=== PATIENT | male | born 1950 | race Caucasian/White ===

== ENCOUNTER 2017-06-18 07:02 | Emergency (ER) | payer MEDICARE, OTHER ==
[~2017-06-18 07:02] MED LIST: ASPI81TA82 PO; CHERRY FRUIT EXTRACT PO; CHOL50006 PO; FISH500C PO; HYDR12.56 PO; LOSA50TA PO; MAGN500T4 PO; MULT-65 PO; SAW160TA PO; VITA500C PO; ZOCO40TA PO; [UNRECOGNIZED DRUG - OTHER] PO
[2017-06-18] MEDS ORDERED: GADODIAMIDE PF 287 MG/ML 20 ML VIAL (for RAD MRI) IVCONTRAST ONE (07:03)
[2017-06-18 07:09] VITALS: BP 180/85; PULSE 101; RESP 16; TEMP 98.2; O2SAT 98
[2017-06-18] MEDS ORDERED: ZOCO10TA PO (07:26)
[2017-06-18] MEDS ORDERED: ASPI-516 CHEW (07:26)
[2017-06-18] MEDS ORDERED: MAGN250T11 PO (07:26)
[2017-06-18] MEDS ORDERED: HYDR-3583 PO (07:26)
[2017-06-18] MEDS ORDERED: [UNRECOGNIZED DRUG - CODE] PO (07:26)
[2017-06-18] MEDS ORDERED: LOSA100T PO (07:26)
[2017-06-18] MEDS ORDERED: SODIUM CHLORIDE 0.9% FLUSH 10 ML FLUSH IV FLUSH PRN (07:30)
--- NOTE | 2017-06-18 07:31 | PD ---
HPI Chief Complaint: Musculoskeletal Complaint Time Seen by Provider: 07:15 Travel History International Travel<30 days: No Contact w/Intl Traveler<30days: No Traveled to known affect area: No History of Present Illness HPI Patient is a 66-year-old male presents emergency department for evaluation of right lower extremity weakness swelling and pain for the past 3-4 days. 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 He has had surgery on his back before by Dr. Chicas, he was told that if his lesions got much bigger he could have life altering weakness of his lower extremities and concern with this he presented to the emergency department today. The patient states he had a workup at an outside hospital a few weeks ago just as a routine checkup and did have a CAT scan of his back. Patient also endorses some intermittent numbness and tingling in his groin area worse on the right, no urinary retention no stool abnormalities. He is ambulating but quite difficult to do so. Symptoms are moderate, gradually worsening, associated signs symptoms as above, context as above. PFSH Past Medical History Arthritis: Yes Cancer: Yes (lung and spinal) Cardiovascular Problems: Yes High Cholesterol: Yes Chemotherapy: Yes (currnent) Diabetes: No Endocrine: No Gastrointestinal Disorders: No Genitourinary: Yes Hepatitis: No Hiatal Hernia: No Hypertension: Yes Immune Disorder: No Kidney Stones: Yes Medical other: No Musculoskeletal: Yes (mitral prolapse) Neurologic: No Psychiatric: No Reproductive: No Respiratory: Yes (lung cancer) Immunizations Current: No Radiation Therapy: Yes (current) Thyroid Disease: No Past Surgical History Abdominal Surgery: Yes (gallbladder) AICD: No Cardiac Surgery: No Ear Surgery: No Endocrine Surgery: No Eye Surgery: No Genitourinary Surgery: No Gynecologic Surgery: No Joint Replacement: Yes (left knee) Neurologic Surgery: No Oral Surgery: No Pacemaker: No Thoracic Surgery: No Other Surgery: Yes (KNEE REPLACEMENT, BROKEN WRISTS, GAL BLADDER, BUNIONECTOMY , DIVIATED SEPTUM) Social History Alcohol Use: Yes (on occasion) Tobacco Use: No Substance Use: No Allergies-Medications (Allergen,Severity, Reaction): Coded Allergies: No Known Allergies (Unverified , 11/01/14) Reported Meds & Prescriptions Reported Meds & Active Scripts Active Reported Aspirin 81 Mg Chew 81 Mg CHEW BID Hydrocodone-Acetaminophen 10-325 mg Tab 1 Tab PO Q4H PRN Zocor (Simvastatin) 10 Mg Tab 10 Mg PO DAILY Magnesium Oxide 250 Mg Tab 250 Mg PO DIRECTED Losartan (Losartan Potassium) 100 Mg Tab 100 Mg PO DAILY Alunbrig (Brigatinib) 30 Mg Tablet 90 Mg PO DAILY Review of Systems Except as stated in HPI: all other systems reviewed are Neg Physical Exam Narrative GENERAL: Well-developed well-nourished, no obvious distress, quite pleasant. SKIN: Focused skin assessment warm/dry. HEAD: Atraumatic. Normocephalic. EYES: Pupils equal and round. No scleral icterus. No injection or drainage. ENT: No nasal bleeding or discharge. Mucous membranes pink and moist. NECK: Trachea midline. No JVD. CARDIOVASCULAR: Regular rate and rhythm. No murmur appreciated. RESPIRATORY: No accessory muscle use. Clear to auscultation. Breath sounds equal bilaterally. GASTROINTESTINAL: Abdomen soft, non-tender, nondistended. Hepatic and splenic margins not palpable. MUSCULOSKELETAL: No obvious deformities. No clubbing. No cyanosis. No edema. No midline CT or L-spine tenderness NEUROLOGICAL: Awake and alert. No obvious cranial nerve deficits. Motor grossly within normal limits. Normal speech. Sensation is intact over L4-L5 and S1, plantar flexion on the right is limited to 4 out of 5, 5 out of 5 on the left. He states sensation feels bilaterally equal to light touch. Cranial nerves II through XII are grossly intact and nonfocal. PSYCHIATRIC: Appropriate mood and affect; insight and judgment normal. Data Data Last Documented VS Vital Signs Date Time Temp Pulse Resp B/P (MAP) Pulse Ox O2 Delivery O2 Flow Rate FiO2 06/18/17 11:29 91 18 145/74 (97) 98 Room Air 06/18/17 07:09 98.2 Orders Orders Mri L Spine W&W/O Contrast (06/18/17 ) Mri T Spine W & W/O Contrast (06/18/17 ) Basic Metabolic Panel (Bmp) (06/18/17 07:28) Complete Blood Count With Diff (06/18/17 07:28) Iv Access Insert/Monitor (06/18/17 07:28) Ecg Monitoring (06/18/17 07:28) Oximetry (06/18/17 07:28) Sodium Chloride 0.9% Flush (Ns Flush) (06/18/17 07:30) Gadodiamide Pf Inj (Omniscan Pf Inj) (06/18/17 07:03) Us Leg Venous Doppler (06/18/17 09:51) Knee, Complete (4vws) (06/18/17 ) Hip, Ap Only W Ap Pelvis (06/18/17 ) Ankle, Complete ([id number]) (06/18/17 ) Ed Discharge Order (06/18/17 11:33) Labs Laboratory Tests Test 06/18/17 07:37 White Blood Count 10.6 TH/MM3 Red Blood Count 3.48 MIL/MM3 Hemoglobin 10.6 GM/DL Hematocrit 31.4 % Mean Corpuscular Volume 90.3 FL Mean Corpuscular Hemoglobin 30.5 PG Mean Corpuscular Hemoglobin Concent 33.8 % Red Cell Distribution Width 17.6 % Platelet Count 251 TH/MM3 Mean Platelet Volume 7.1 FL Neutrophils (%) (Auto) 78.7 % Lymphocytes (%) (Auto) 11.8 % Monocytes (%) (Auto) 6.9 % Eosinophils (%) (Auto) 1.9 % Basophils (%) (Auto) 0.7 % Neutrophils # (Auto) 8.3 TH/MM3 Lymphocytes # (Auto) 1.2 TH/MM3 Monocytes # (Auto) 0.7 TH/MM3 Eosinophils # (Auto) 0.2 TH/MM3 Basophils # (Auto) 0.1 TH/MM3 CBC Comment DIFF FINAL Differential Comment Blood Urea Nitrogen 22 MG/DL Creatinine 1.07 MG/DL Random Glucose 111 MG/DL Calcium Level 8.6 MG/DL Sodium Level 136 MEQ/L Potassium Level 4.2 MEQ/L Chloride Level 102 MEQ/L Carbon Dioxide Level 27.0 MEQ/L Anion Gap 7 MEQ/L Estimat Glomerular Filtration Rate 69 ML/MIN [facility] Medical Decision Making Medical Screen Exam Complete: Yes Emergency Medical Condition: Yes Differential Diagnosis DVT, spinal cord abnormality, myelopathy, fracture, metastatic disease. Narrative Course Patient roomed emergency department, MRI does show multilevel degenerative disease but no critical lesion. The patient reexamined does have 5 out of 5 strength in bilateral lower extremities, when he attempted to ambulate the patient does have pain when he attempts to ambulate at the hip be more primarily the knee and the ankle. Ultrasound of the lower extremity was added as well as x-rays of these joints both of which were negative. His labs are reassuring. The patient was offered admission to the hospital for neurosurgery consult but at this time I think it is prudent for him to pursue an outpatient consult as he does have good strength just more radiculopathy rather than weakness. He would like to go home at this time. I counseled him carefully and return to ED criteria. Symptomatic control was discussed. He was offered pain medicine in the department and declined. He is stable for discharge. Diagnosis Primary Impression: Pain of right lower extremity Referrals: Daniel Chicas MD Disposition: DISCHARGE HOME Condition: Stable Camilo Youngblood MD Jun 18, 2017 07:31
[2017-06-18 07:39] VITALS: RESP 18; O2SAT 99
[2017-06-18 07:49] LABS: AUTOMATED NEUTROPHIL # 8.3 TH/MM3 (1.8-7.7); BASOPHIL # 0.1 TH/MM3 (0-0.2); BASOPHIL % 0.7 % (0.0-2.0); EOSINOPHIL # 0.2 TH/MM3 (0-0.4); EOSINOPHIL % 1.9 % (0.0-4.0); HEMATOCRIT 31.4 % (39.0-51.0); HEMOGLOBIN 10.6 GM/DL (13.0-17.0); LYMPH % 11.8 % (9.0-44.0); LYMPHOCYTE # 1.2 TH/MM3 (1.0-4.8); MEAN CELL VOLUME 90.3 FL (80.0-100.0); MEAN CORPUSCULAR HEMOGLOBIN 30.5 PG (27.0-34.0); MEAN CORPUSCULAR HGB CONC 33.8 % (32.0-36.0); MEAN PLATELET VOLUME 7.1 FL (7.0-11.0); MONO % 6.9 % (0.0-8.0); MONOCYTE # 0.7 TH/MM3 (0-0.9); NEUT % 78.7 % (16.0-70.0); PLATELET COUNT 251 TH/MM3 (150-450); RED BLOOD COUNT 3.48 MIL/MM3 (4.50-5.90); RED CELL DISTRIBUTION WIDTH 17.6 % (11.6-17.2); WHITE BLOOD COUNT 10.6 TH/MM3 (4.0-11.0)
[2017-06-18 08:03] LABS: CALCIUM 8.6 MG/DL (8.5-10.1); CREATININE 1.07 MG/DL (0.60-1.30)
--- NOTE | 2017-06-18 09:34 | RADRPT ---
EXAM DATE/TIME: 06/18/2017 08:18 [facility] COMPARISON: No previous studies available for comparison. INDICATIONS : Inability to ambulate. CONTRAST: 18 cc Omniscan (gadodiamide) IV MEDICAL HISTORY : Metastatic, liver. Carcinoma, lung. Metastatic, bone. SURGICAL HISTORY : Total knee replacement, left. Fusion, thoracic. Cholecystectomy. ENCOUNTER: Initial ACUITY: 1 day PAIN SCORE: 5/10 LOCATION: Paraspinal TECHNIQUE: Multiplanar multisequence MRI of the lumbar spine was performed with and without contrast. FINDINGS: The most caudal appearing lumbar vertebra is numbered as L5. VERTEBRAE: Grade 2 spinal listhesis L5 on S1 CONUS: Normal level and configuration. POST CONTRAST: No abnormal areas of contrast enhancement are seen. T12-L1: The thecal sac has a normal diameter. No evidence of disc bulge or protrusion. The neural foramina are patent bilaterally. L1-L2: Mild air space region is present without neural compression. L2-L3: Mild air space ridge is present causing some flattening the anterior thecal space. There is minimal bilateral neural foraminal encroachment. L3-L4: Generalized bulging is present with minimal bilateral neural foramina encroachment and mild degenerat evita changes in the facets. L4-L5: Mild bulge is present. Minimal facet disease is evident. There is no significant neural compression . L5-S1: Anterolisthesis of L5 on S1, grade 2 bilateral pars defect. There is bilateral neural foramina encro achment with lateral recess stenosis. Mild degenerative changes are evident about both SI joints. CONCLUSION: Grade 2 anterolisthesis of L5 on S1. Degenerative changes throughout the lumbar spine There is no abnormal contrast enhancement No evidence for an inflammatory process. Dc Singer MD FACR on June 18, 2017 at 9:27 Board Certified Radiologist. This report was verified electronically.
--- NOTE | 2017-06-18 09:40 | RADRPT ---
EXAM DATE/TIME: 06/18/2017 08:18 [facility] COMPARISON: No previous studies available for comparison. INDICATIONS : Inability to ambulate. CONTRAST: 18 cc Omniscan (gadodiamide) IV MEDICAL HISTORY : Metastatic, bone. Carcinoma, lung. Metastatic, liver. SURGICAL HISTORY : Fusion, thoracic. Cholecystectomy. Total knee replacement, left. ENCOUNTER: Initial ACUITY: 1 day PAIN SCORE: 5/10 LOCATION: Paraspinal TECHNIQUE: Multiplanar multisequence MRI of the thoracic spine was performed. FINDINGS: Previous transpedicular fixation T4-T7 with laminectomy at T5-T6 from metastatic disease. There is m arrow alteration in T3 and pedicle of T8 left side that would be consistent with metastatic disease. There is no cord compression in the upper thoracic spine. Minimal interspace ridging at T8-T9 without significant spinal stenosis Moderate interspace region with minimal disc at T10-11 without significant spinal stenosis There is no paravertebral mass. CONCLUSION: Scattered areas of presumed metastatic disease as described above Previous surgery T5-T7 with laminectomy for metastatic disease Marrow replacement at T3 with out cord compression Presumed metastatic disease left pedicle T8. I don't see evidence for cord impingement. Dc Singer MD FACR on June 18, 2017 at 9:31 Board Certified Radiologist. This report was verified electronically.
--- NOTE | 2017-06-18 11:00 | RADRPT ---
EXAM DATE/TIME: 06/18/2017 10:34 [facility] COMPARISON: No previous studies available for comparison. INDICATIONS : Right leg swelling. MEDICAL HISTORY : Hypercholesterolemia. Hypertension. Glasses. Neck pain. Lung cancer. Kidney stones. Arthritis. SURGICAL HISTORY : Cholecystectomy. Left knee replacement. ENCOUNTER: Initial ACUITY: 4 - 6 days PAIN SCORE: 4/10 LOCATION: Right leg. TECHNIQUE: Venous ultrasound of the leg was performed from the inguinal ligament to the proximal calf. Real-bang e, color Doppler and spectral tracing, compression and augmentation techniques were used. FINDINGS: There is normal compressibility of the deep venous system from the inguinal region to the proximal ca lf. No echogenic clot is seen in the lumen of the common femoral, femoral, popliteal, and posterior tibial veins. There is a normal response of the venous system to proximal and distal augmentation an d respiration. CONCLUSION: Negative for deep venous thrombosis. Dc Singer MD FACR on June 18, 2017 at 10:56 Board Certified Radiologist. This report was verified electronically.
--- NOTE | 2017-06-18 11:02 | RADRPT ---
EXAM DATE/TIME: 06/18/2017 10:28 [facility] COMPARISON: No previous studies available for comparison. INDICATIONS : Patient complains of right hip pain. No known injury. Unable to bear weight. MEDICAL HISTORY : None. SURGICAL HISTORY : None. ENCOUNTER: Initial ACUITY: 2 weeks PAIN SCORE: 7/10 LOCATION: Right Hip FINDINGS: View of the right hip and pelvis was obtained. Femoral neck is intact. No fracture is seen. The so ft tissues are unremarkable. CONCLUSION: Negative for fracture or dislocation. Follow up in 7-10 days is suggested if symptoms persist. cD Singer MD FACR on June 18, 2017 at 10:58 Board Certified Radiologist. This report was verified electronically.
--- NOTE | 2017-06-18 11:05 | RADRPT ---
EXAM DATE/TIME: 06/18/2017 10:30 [facility] COMPARISON: No previous studies available for comparison. INDICATIONS : Patient complains of right knee pain. No known injury. Unable to bear weight. MEDICAL HISTORY : None. SURGICAL HISTORY : None. ENCOUNTER: Initial ACUITY: 2 weeks PAIN SCORE: 7/10 LOCATION: Right Knee FINDINGS: Degenerative changes in the medial and lateral compartment, worse in the medial compartment. Degener ative changes patellofemoral compartment. Small joint effusion. Negative for acute fracture. CONCLUSION: Degenerative changes, trace joint effusion, negative for acute fracture. Dc Singer MD FACR on June 18, 2017 at 10:59 Board Certified Radiologist. This report was verified electronically.
--- NOTE | 2017-06-18 11:05 | RADRPT ---
EXAM DATE/TIME: 06/18/2017 10:32 [facility] COMPARISON: No previous studies available for comparison. INDICATIONS : Patient complains of right ankle pain. No known injury. Unable to bear weight. MEDICAL HISTORY : None. SURGICAL HISTORY : None. ENCOUNTER: Initial ACUITY: 2 weeks PAIN SCORE: 7/10 LOCATION: Right Ankle FINDINGS: Minimal soft tissue swelling, mild degenerative changes, no fracture. Anatomic alignment. CONCLUSION: Soft tissue swelling, no fracture Dc Singer MD FACR on June 18, 2017 at 11:02 Board Certified Radiologist. This report was verified electronically.
[2017-06-18 11:29] VITALS: BP 145/74; PULSE 91; RESP 18; O2SAT 98
== END 2017-06-18 11:50 | disposition home or self-care (01) ==
LOC: NEPC 07:02
DX: M79.604 Pain in right leg (principal); C78.7 Secondary malignant neoplasm of liver and intrahepatic bile duct; Z85.118 Personal history of other malignant neoplasm of bronchus and lung; R20.0 Anesthesia of skin; E78.00 Pure hypercholesterolemia, unspecified; I10 Essential (primary) hypertension
CPT/HCPCS: 72157; 72158; 73501; 73564; 73610; 80048; 85025; 93971; 99285; A9579